=== PATIENT | male | born 1940 | race Caucasian/White ===

== ENCOUNTER 2021-05-10 10:21 | Inpatient (IN) ==
[2021-05-11] MEDS ORDERED: Dextrose Gel 15 GM/37.5 ML TUBE PO PRN ×2 (20:59)
[2021-05-11] MEDS ORDERED: D5% in Water 1,000 ML IVC PRN (20:59)
[2021-05-11] MEDS ORDERED: *HR* Dextrose 50 % in Water (Vial) 50 ML VIAL IVP PRN (20:59)
[2021-05-11] MEDS: Insulin LISPRO 300 UNITS/3 ML VIAL SUBQ SCH (21:22)
[2021-05-11] MEDS: Gabapentin 300 MG CAPSULE PO SCH (21:41)
[2021-05-11] MEDS: Melatonin 3 MG TABLET PO SCH (21:41)
[2021-05-11] MEDS: hydrALAZINE 25 MG TABLET PO SCH (23:28)
[2021-05-12] MEDS: carvediloL 6.25 MG TABLET PO SCH ×2 (05:34→17:13)
[2021-05-12] MEDS: Morphine Sulfate ER (12 HR) 30 MG TABLET.ER PO SCH ×2 (05:34→17:13)
[2021-05-12] MEDS: *HR* Enoxaparin 40 MG/0.4 ML SYRINGE SQ SCH (05:35)
[2021-05-12 06:24] LABS: Basophils % 0.2 %; Eosinophils % 0.4 %; Hematocrit 33.4 % (37.5-50.1); Hemoglobin 10.6 g/dL (12.9-16.9); Immature Granulocytes % 1.8 % (0-4); Lymphocytes # 1.7 K/mcL (0.6-4.6); Lymphocytes % 15.1 %; Mean Corpuscular HGB Conc 31.7 g/dL (31.6-35.5); Mean Corpuscular Hemoglobin 30.5 pg (28.0-33.3); Mean Platelet Volume 10.9 fL (9.4-12.4); Monocytes % 8.8 %; Neutrophils # 8.1 K/mcL (1.6-8.9); Platelet Count 283 K/mcL (140-400); Red Blood Count 3.48 M/mcL (4.19-5.50); Red Cell Distribution Width 15.8 % (11.5-14.5); Segmented Neutrophils % 73.7 %
[2021-05-12 06:41] LABS: BUN/Creatinine Ratio 42 (6-26); Blood Urea Nitrogen 30 mg/dL (8-23); Calcium 8.4 mg/dL (8.6-10.3); Carbon Dioxide 25 mEq/L (23-29); Chloride 105 mEq/L (98-107); Glucose 154 mg/dL (70-105); Osmolality,Calculated 293 (280-300); Potassium 3.7 mEq/L (3.5-5.1); Sodium 137 mEq/L (136-145); eGFR For African Americans > 60 (> 60); eGFR For Non-African Americans > 60 (> 60)
[2021-05-12] MEDS: hydrALAZINE 25 MG TABLET PO SCH ×3 (08:35→21:39)
[2021-05-12] MEDS: lisinopriL 10 MG TABLET PO SCH (08:35)
[2021-05-12] MEDS: Gabapentin 300 MG CAPSULE PO SCH ×3 (08:35→21:39)
[2021-05-12] MEDS: Loratadine 10 MG TABLET PO SCH (08:35)
[2021-05-12] MEDS: Insulin LISPRO 300 UNITS/3 ML VIAL SUBQ SCH ×4 (09:34→21:46)
[2021-05-12] MEDS: MINERAL OIL TP SCH (10:53)
[2021-05-12] MEDS: HYDROPHIL PETROLAT TP SCH (10:53)
[2021-05-12] MEDS: Melatonin 3 MG TABLET PO SCH (21:39)
[2021-05-13] MEDS: *HR* Enoxaparin 40 MG/0.4 ML SYRINGE SQ SCH (06:12)
[2021-05-13] MEDS: carvediloL 6.25 MG TABLET PO SCH ×2 (06:13→17:32)
[2021-05-13] MEDS: Morphine Sulfate ER (12 HR) 30 MG TABLET.ER PO SCH ×2 (06:13→17:33)
[2021-05-13] MEDS: Ondansetron ODT 4 MG TAB.RAPDIS SL PRN (09:14)
[2021-05-13] MEDS: Insulin LISPRO 300 UNITS/3 ML VIAL SUBQ SCH ×4 (09:51→22:21)
[2021-05-13] MEDS: hydrALAZINE 25 MG TABLET PO SCH ×2 (09:51→16:50)
[2021-05-13] MEDS: Loratadine 10 MG TABLET PO SCH (09:51)
[2021-05-13] MEDS: Gabapentin 300 MG CAPSULE PO SCH ×3 (09:52→20:58)
[2021-05-13] MEDS: lisinopriL 10 MG TABLET PO SCH (09:52)
[2021-05-13] MEDS: HYDROPHIL PETROLAT TP SCH (09:53)
[2021-05-13] MEDS: MINERAL OIL TP SCH (09:53)
[2021-05-13] MEDS: Melatonin 3 MG TABLET PO SCH (20:57)
[2021-05-13] MEDS: *HR* OxyCODONE/APAP 5/325 TABLET PO PRN (22:19)
[2021-05-14] MEDS: hydrALAZINE 25 MG TABLET PO SCH ×4 (01:10→21:13)
[2021-05-14] MEDS: *HR* Enoxaparin 40 MG/0.4 ML SYRINGE SQ SCH (06:15)
[2021-05-14] MEDS: carvediloL 6.25 MG TABLET PO SCH ×2 (06:17→16:59)
[2021-05-14] MEDS: Morphine Sulfate ER (12 HR) 30 MG TABLET.ER PO SCH (06:17)
[2021-05-14] MEDS: Insulin LISPRO 300 UNITS/3 ML VIAL SUBQ SCH ×4 (07:27→21:06)
[2021-05-14] MEDS: Gabapentin 300 MG CAPSULE PO SCH ×3 (09:09→21:13)
[2021-05-14] MEDS: MINERAL OIL TP SCH (09:10)
[2021-05-14] MEDS: HYDROPHIL PETROLAT TP SCH (09:10)
[2021-05-14] MEDS: Loratadine 10 MG TABLET PO SCH (09:10)
[2021-05-14] MEDS: lisinopriL 10 MG TABLET PO SCH (09:10)
[2021-05-14 12:06] LABS: Basophils % 0.2 %; Eosinophils % 0.3 %; Hematocrit 29.1 % (37.5-50.1); Hemoglobin 9.2 g/dL (12.9-16.9); Immature Granulocytes % 2.3 % (0-4); Lymphocytes # 1.7 K/mcL (0.6-4.6); Mean Corpuscular HGB Conc 31.6 g/dL (31.6-35.5); Mean Corpuscular Hemoglobin 30.9 pg (28.0-33.3); Mean Corpuscular Volume 97.7 fL (83.0-100.0); Mean Platelet Volume 11.3 fL (9.4-12.4); Monocytes # 1.5 K/mcL (0.0-1.3); Monocytes % 12.6 %; Neutrophils # 8.4 K/mcL (1.6-8.9); Platelet Count 296 K/mcL (140-400); Red Blood Count 2.98 M/mcL (4.19-5.50); Red Cell Distribution Width 15.4 % (11.5-14.5); Segmented Neutrophils % 70.6 %; White Blood Count 11.9 K/mcL (4.3-11.1)
[2021-05-14 13:11] LABS: Potassium 4.1 mEq/L (3.5-5.1)
[2021-05-14] MEDS ORDERED: 0.9 % Sodium Chloride 1,000 ML IVC SCH (14:15)
[2021-05-14] MEDS: Morphine Sulfate ER (12 HR) 15 MG TABLET.ER PO SCH (17:12)
[2021-05-14 17:51] LABS: Estimated Average Glucose 154 mg/dl
[2021-05-14] MEDS: Melatonin 3 MG TABLET PO SCH (21:13)
[2021-05-15] MEDS: *HR* Enoxaparin 40 MG/0.4 ML SYRINGE SQ SCH (04:53)
[2021-05-15] MEDS: carvediloL 6.25 MG TABLET PO SCH ×2 (04:53→16:54)
[2021-05-15] MEDS: Morphine Sulfate ER (12 HR) 15 MG TABLET.ER PO SCH ×2 (04:53→16:54)
[2021-05-15] MEDS: Insulin LISPRO 300 UNITS/3 ML VIAL SUBQ SCH ×4 (07:31→19:52)
[2021-05-15] MEDS: hydrALAZINE 25 MG TABLET PO SCH (09:31)
[2021-05-15] MEDS: lisinopriL 10 MG TABLET PO SCH (09:31)
[2021-05-15] MEDS: Loratadine 10 MG TABLET PO SCH (09:39)
[2021-05-15] MEDS: Gabapentin 300 MG CAPSULE PO SCH ×3 (09:39→20:55)
[2021-05-15] MEDS: HYDROPHIL PETROLAT TP SCH (09:41)
[2021-05-15] MEDS: MINERAL OIL TP SCH (09:41)
[2021-05-15] MEDS: [UNRECOGNIZED DRUG - OTHER] PO SCH (09:42)
[2021-05-15] MEDS: Melatonin 3 MG TABLET PO SCH (20:55)
[2021-05-16] MEDS: *HR* Enoxaparin 40 MG/0.4 ML SYRINGE SQ SCH (05:06)
[2021-05-16] MEDS: Morphine Sulfate ER (12 HR) 15 MG TABLET.ER PO SCH ×2 (05:06→18:03)
[2021-05-16] MEDS: carvediloL 6.25 MG TABLET PO SCH ×2 (05:06→18:03)
[2021-05-16] MEDS: Insulin LISPRO 300 UNITS/3 ML VIAL SUBQ SCH ×4 (07:36→20:15)
[2021-05-16] MEDS: HYDROPHIL PETROLAT TP SCH (09:00)
[2021-05-16] MEDS: MINERAL OIL TP SCH (09:00)
[2021-05-16] MEDS: Gabapentin 300 MG CAPSULE PO SCH ×3 (09:00→20:14)
[2021-05-16] MEDS: [UNRECOGNIZED DRUG - OTHER] PO SCH (09:00)
[2021-05-16] MEDS: Loratadine 10 MG TABLET PO SCH (09:00)
[2021-05-16] MEDS: lisinopriL 5 MG TABLET PO SCH (09:01)
[2021-05-16] MEDS: Ondansetron ODT 4 MG TAB.RAPDIS SL PRN (14:17)
[2021-05-16] MEDS: Melatonin 3 MG TABLET PO SCH (20:13)
[2021-05-17] MEDS: Ondansetron ODT 4 MG TAB.RAPDIS SL PRN (02:07)
[2021-05-17] MEDS: carvediloL 6.25 MG TABLET PO SCH ×2 (05:07→17:15)
[2021-05-17 05:12] LABS: Alanine Aminotransferase 17 Units/L (7-52); Albumin 2.4 g/dL (3.5-5.7); Alkaline Phosphatase 87 Units/L (34-104); Aspartate Amino Transferase 13 Units/L (13-39); BUN/Creatinine Ratio 22 (6-26); Bilirubin,Total 0.8 mg/dL (0.3-1.0); Blood Urea Nitrogen 18 mg/dL (8-23); Calcium 8.3 mg/dL (8.6-10.3); Carbon Dioxide 26 mEq/L (23-29); Chloride 102 mEq/L (98-107); Globulin 2.3 g/dL (2.4-3.5); Glucose 108 mg/dL (70-105); Magnesium 1.8 mg/dL (1.6-2.6); Osmolality,Calculated 280 (280-300); Potassium 4.3 mEq/L (3.5-5.1); Sodium 134 mEq/L (136-145); Total Protein 4.7 g/dL (6.4-8.9); eGFR For African Americans > 60 (> 60); eGFR For Non-African Americans > 60 (> 60)
[2021-05-17] MEDS: Morphine Sulfate ER (12 HR) 15 MG TABLET.ER PO SCH ×2 (05:14→17:15)
[2021-05-17 06:26] LABS: Hematocrit 23.8 % (37.5-50.1); Hemoglobin 7.5 g/dL (12.9-16.9); Mean Corpuscular HGB Conc 31.5 g/dL (31.6-35.5); Mean Corpuscular Hemoglobin 30.4 pg (28.0-33.3); Mean Corpuscular Volume 96.4 fL (83.0-100.0); Mean Platelet Volume 10.5 fL (9.4-12.4); Platelet Count 327 K/mcL (140-400); Red Blood Count 2.47 M/mcL (4.19-5.50); Red Cell Distribution Width 15.3 % (11.5-14.5); White Blood Count 8.9 K/mcL (4.3-11.1)
[2021-05-17] MEDS: *HR* Enoxaparin 40 MG/0.4 ML SYRINGE SQ SCH (07:23)
[2021-05-17] MEDS: Insulin LISPRO 300 UNITS/3 ML VIAL SUBQ SCH ×4 (08:43→20:55)
[2021-05-17] MEDS: Gabapentin 300 MG CAPSULE PO SCH ×3 (09:32→20:52)
[2021-05-17] MEDS: [UNRECOGNIZED DRUG - OTHER] PO SCH (09:32)
[2021-05-17] MEDS: HYDROPHIL PETROLAT TP SCH (09:32)
[2021-05-17] MEDS: MINERAL OIL TP SCH (09:32)
[2021-05-17] MEDS: Loratadine 10 MG TABLET PO SCH (09:32)
[2021-05-17] MEDS: lisinopriL 5 MG TABLET PO SCH (09:33)
[2021-05-17] MEDS: *HR* OxyCODONE/APAP 5/325 TABLET PO PRN (13:15)
[2021-05-17] MEDS: Melatonin 3 MG TABLET PO SCH (20:52)
[2021-05-18] MEDS: carvediloL 6.25 MG TABLET PO SCH ×2 (06:33→16:19)
[2021-05-18] MEDS: Morphine Sulfate ER (12 HR) 15 MG TABLET.ER PO SCH ×2 (06:33→17:13)
[2021-05-18] MEDS: *HR* Enoxaparin 40 MG/0.4 ML SYRINGE SQ SCH (06:33)
[2021-05-18] MEDS: lisinopriL 5 MG TABLET PO SCH (07:32)
[2021-05-18] MEDS: MINERAL OIL TP SCH (08:32)
[2021-05-18] MEDS: HYDROPHIL PETROLAT TP SCH (08:32)
[2021-05-18] MEDS: [UNRECOGNIZED DRUG - OTHER] PO SCH (08:33)
[2021-05-18] MEDS: Gabapentin 300 MG CAPSULE PO SCH ×3 (08:33→20:51)
[2021-05-18] MEDS: Loratadine 10 MG TABLET PO SCH (08:33)
[2021-05-18] MEDS: Insulin LISPRO 300 UNITS/3 ML VIAL SUBQ SCH ×4 (08:34→20:32)
[2021-05-18] MEDS: Melatonin 3 MG TABLET PO SCH (20:51)
[2021-05-18] MEDS: *HR* OxyCODONE/APAP 5/325 TABLET PO PRN (20:52)
[2021-05-19] MEDS: Morphine Sulfate ER (12 HR) 15 MG TABLET.ER PO SCH ×2 (05:51→16:55)
[2021-05-19] MEDS: carvediloL 6.25 MG TABLET PO SCH ×2 (05:52→16:55)
[2021-05-19] MEDS: *HR* Enoxaparin 40 MG/0.4 ML SYRINGE SQ SCH (05:53)
[2021-05-19] MEDS: Insulin LISPRO 300 UNITS/3 ML VIAL SUBQ SCH ×4 (07:48→22:05)
[2021-05-19] MEDS: MINERAL OIL TP SCH (08:43)
[2021-05-19] MEDS: HYDROPHIL PETROLAT TP SCH (08:43)
[2021-05-19] MEDS: Loratadine 10 MG TABLET PO SCH (08:44)
[2021-05-19] MEDS: Gabapentin 300 MG CAPSULE PO SCH ×3 (08:44→20:20)
[2021-05-19] MEDS: lisinopriL 5 MG TABLET PO SCH (08:44)
[2021-05-19] MEDS: [UNRECOGNIZED DRUG - OTHER] PO SCH (08:44)
[2021-05-19] MEDS: *HR* OxyCODONE/APAP 5/325 TABLET PO PRN ×2 (11:35→20:21)
[2021-05-19] MEDS: Melatonin 3 MG TABLET PO SCH (20:20)
[2021-05-20] MEDS: Morphine Sulfate ER (12 HR) 15 MG TABLET.ER PO SCH ×3 (05:55→17:58)
[2021-05-20] MEDS: carvediloL 6.25 MG TABLET PO SCH ×3 (05:55→17:58)
[2021-05-20] MEDS: *HR* Enoxaparin 40 MG/0.4 ML SYRINGE SQ SCH (05:56)
[2021-05-20 06:13] LABS: Hematocrit 23.5 % (37.5-50.1); Hemoglobin 7.3 g/dL (12.9-16.9); Mean Corpuscular HGB Conc 31.1 g/dL (31.6-35.5); Mean Corpuscular Hemoglobin 29.9 pg (28.0-33.3); Mean Corpuscular Volume 96.3 fL (83.0-100.0); Mean Platelet Volume 10.9 fL (9.4-12.4); Platelet Count 327 K/mcL (140-400); Red Blood Count 2.44 M/mcL (4.19-5.50); Red Cell Distribution Width 15.8 % (11.5-14.5); White Blood Count 6.9 K/mcL (4.3-11.1)
[2021-05-20 06:37] LABS: BUN/Creatinine Ratio 31 (6-26); Blood Urea Nitrogen 24 mg/dL (8-23); Calcium 9.1 mg/dL (8.6-10.3); Carbon Dioxide 33 mEq/L (23-29); Chloride 97 mEq/L (98-107); Glucose 94 mg/dL (70-105); Magnesium 1.8 mg/dL (1.6-2.6); Osmolality,Calculated 284 (280-300); Potassium 3.8 mEq/L (3.5-5.1); Sodium 135 mEq/L (136-145); eGFR For African Americans > 60 (> 60); eGFR For Non-African Americans > 60 (> 60)
[2021-05-20] MEDS: Insulin LISPRO 300 UNITS/3 ML VIAL SUBQ SCH ×4 (07:48→19:57)
[2021-05-20] MEDS: Loratadine 10 MG TABLET PO SCH (07:49)
[2021-05-20] MEDS: lisinopriL 5 MG TABLET PO SCH (07:49)
[2021-05-20] MEDS: Gabapentin 300 MG CAPSULE PO SCH ×3 (07:49→21:06)
[2021-05-20] MEDS: HYDROPHIL PETROLAT TP SCH (10:40)
[2021-05-20] MEDS: MINERAL OIL TP SCH (10:40)
[2021-05-20] MEDS: Ondansetron ODT 4 MG TAB.RAPDIS SL PRN (10:43)
[2021-05-20] MEDS: [UNRECOGNIZED DRUG - OTHER] PO SCH (11:52)
[2021-05-20] MEDS: *HR* OxyCODONE/APAP 5/325 TABLET PO PRN (14:41)
[2021-05-20] MEDS: levoFLOXacin 750 MG TABLET PO SCH (14:44)
[2021-05-20 17:39] LABS: Bilirubin,Urine Negative (Negative); Blood,Urine Trace-intact (Negative); Clarity,Urine Clear (Clear); Color,Urine Yellow (Yellow); Glucose,Urine (UA) Normal (Normal); Ketones,Urine Negative (Negative); Leukocyte Esterase,Urine Negative (Negative); Nitrite,Urine Negative (Negative); PH,Urine 6.5 pH Units (5.0-8.0); Protein,Urine Negative (Neg-Trace); Urobilinogen,Urine Normal (Normal)
[2021-05-20] MEDS: Melatonin 3 MG TABLET PO SCH (21:06)
[2021-05-21 05:13] LABS: BUN/Creatinine Ratio 26 (6-26); Blood Urea Nitrogen 23 mg/dL (8-23); Calcium 9.1 mg/dL (8.6-10.3); Carbon Dioxide 33 mEq/L (23-29); Chloride 99 mEq/L (98-107); Glucose 112 mg/dL (70-105); Osmolality,Calculated 290 (280-300); Potassium 4.1 mEq/L (3.5-5.1); Sodium 138 mEq/L (136-145); eGFR For African Americans > 60 (> 60); eGFR For Non-African Americans > 60 (> 60)
[2021-05-21 05:16] LABS: Hematocrit 22.8 % (37.5-50.1); Mean Corpuscular HGB Conc 30.7 g/dL (31.6-35.5); Mean Corpuscular Volume 97.9 fL (83.0-100.0); Mean Platelet Volume 10.9 fL (9.4-12.4); Platelet Count 303 K/mcL (140-400); Red Blood Count 2.33 M/mcL (4.19-5.50); Red Cell Distribution Width 16.2 % (11.5-14.5); White Blood Count 7.5 K/mcL (4.3-11.1)
[2021-05-21] MEDS: *HR* Enoxaparin 40 MG/0.4 ML SYRINGE SQ SCH (06:34)
[2021-05-21] MEDS: Morphine Sulfate ER (12 HR) 15 MG TABLET.ER PO SCH ×2 (06:35→17:35)
[2021-05-21] MEDS: carvediloL 6.25 MG TABLET PO SCH (06:35)
[2021-05-21] MEDS: MINERAL OIL TP SCH (08:04)
[2021-05-21] MEDS: levoFLOXacin 750 MG TABLET PO SCH (08:04)
[2021-05-21] MEDS: Gabapentin 300 MG CAPSULE PO SCH ×3 (08:04→21:57)
[2021-05-21] MEDS: Loratadine 10 MG TABLET PO SCH (08:04)
[2021-05-21] MEDS: lisinopriL 5 MG TABLET PO SCH (08:04)
[2021-05-21] MEDS: HYDROPHIL PETROLAT TP SCH (08:04)
[2021-05-21] MEDS: Insulin LISPRO 300 UNITS/3 ML VIAL SUBQ SCH ×4 (08:05→21:57)
[2021-05-21] MEDS: [UNRECOGNIZED DRUG - OTHER] PO SCH (08:10)
[2021-05-21] MEDS ORDERED: 0.9 % Sodium Chloride 250 ML IVC SCH (10:15)
[2021-05-21] MEDS ORDERED: Furosemide 20 MG/2 ML VIAL IVP ONE (15:19)
[2021-05-21] MEDS: Ipratropium/Albuterol Neb 3 ML IH SCH ×2 (16:38→21:23)
[2021-05-21] MEDS: predniSONE 10 MG TABLET PO SCH (17:36)
[2021-05-21 18:00] LABS: % Iron Saturation 17 % (20-55); Iron 41 mcg/dL (65-175); Transferrin 169 mg/dL (203-362)
[2021-05-21] MEDS ORDERED: carvediloL 25 MG TABLET PO ONE (18:00)
[2021-05-21] MEDS: Melatonin 3 MG TABLET PO SCH (21:58)
[2021-05-21] MEDS: *HR* OxyCODONE/APAP 5/325 TABLET PO PRN (21:58)
[2021-05-22] MEDS: Ipratropium/Albuterol Neb 3 ML IH SCH ×4 (04:06→21:21)
[2021-05-22 05:30] LABS: Alanine Aminotransferase 13 Units/L (7-52); Albumin 2.8 g/dL (3.5-5.7); Albumin/Globulin Ratio 0.8 (1.1-2.2); Alkaline Phosphatase 83 Units/L (34-104); Aspartate Amino Transferase 12 Units/L (13-39); BUN/Creatinine Ratio 24 (6-26); Bilirubin,Total 0.9 mg/dL (0.3-1.0); Blood Urea Nitrogen 22 mg/dL (8-23); Calcium 9.4 mg/dL (8.6-10.3); Carbon Dioxide 33 mEq/L (23-29); Chloride 98 mEq/L (98-107); Globulin 3.3 g/dL (2.4-3.5); Glucose 175 mg/dL (70-105); Magnesium 1.9 mg/dL (1.6-2.6); Osmolality,Calculated 292 (280-300); Potassium 4.6 mEq/L (3.5-5.1); Sodium 137 mEq/L (136-145); Total Protein 6.1 g/dL (6.4-8.9); eGFR For African Americans > 60 (> 60); eGFR For Non-African Americans > 60 (> 60)
[2021-05-22 05:38] LABS: Hematocrit 28.3 % (37.5-50.1); Hemoglobin 8.9 g/dL (12.9-16.9); Mean Corpuscular HGB Conc 31.4 g/dL (31.6-35.5); Mean Corpuscular Hemoglobin 29.6 pg (28.0-33.3); Platelet Count 324 K/mcL (140-400); Red Blood Count 3.01 M/mcL (4.19-5.50); Red Cell Distribution Width 18.1 % (11.5-14.5); White Blood Count 9.5 K/mcL (4.3-11.1)
[2021-05-22] MEDS: Morphine Sulfate ER (12 HR) 15 MG TABLET.ER PO SCH ×2 (06:10→16:34)
[2021-05-22] MEDS: *HR* Enoxaparin 40 MG/0.4 ML SYRINGE SQ SCH (06:10)
[2021-05-22 07:58] LABS: % Iron Saturation 16 % (20-55); Iron 42 mcg/dL (65-175); Transferrin 187 mg/dL (203-362)
[2021-05-22] MEDS ORDERED: carvediloL 6.25 MG TABLET PO SCH ×2 (08:00)
[2021-05-22] MEDS: Insulin LISPRO 300 UNITS/3 ML VIAL SUBQ SCH ×4 (09:01→20:50)
[2021-05-22] MEDS: lisinopriL 5 MG TABLET PO SCH (09:02)
[2021-05-22] MEDS: Loratadine 10 MG TABLET PO SCH (09:02)
[2021-05-22] MEDS: levoFLOXacin 750 MG TABLET PO SCH (09:02)
[2021-05-22] MEDS: *HR* OxyCODONE/APAP 5/325 TABLET PO PRN ×2 (09:02→20:49)
[2021-05-22] MEDS: MINERAL OIL TP SCH (09:03)
[2021-05-22] MEDS: HYDROPHIL PETROLAT TP SCH (09:03)
[2021-05-22] MEDS: Gabapentin 300 MG CAPSULE PO SCH ×3 (09:03→20:49)
[2021-05-22] MEDS: predniSONE 10 MG TABLET PO SCH ×2 (09:03→16:34)
[2021-05-22] MEDS ORDERED: carvediloL 25 MG TABLET PO ONE (09:15)
[2021-05-22] MEDS: [UNRECOGNIZED DRUG - OTHER] PO SCH (10:50)
[2021-05-22] MEDS ORDERED: Bisacodyl 10 MG RECTAL SUPPOSITORY RC PRN (15:19)
[2021-05-22] MEDS ORDERED: MOM Conc 10 ML UD.LIQ PO PRN (15:19)
[2021-05-22] MEDS ORDERED: Lactulose Oral Soln 20 GM/30 ML UDC PO PRN (15:21)
[2021-05-22] MEDS: carvediloL 6.25 MG TABLET PO SCH (16:34)
[2021-05-22] MEDS: Melatonin 3 MG TABLET PO SCH (20:49)
[2021-05-22] MEDS: Artificial Tears SOLN 15 ML BOTTLE LEFT EYE PRN (20:56)
[2021-05-23] MEDS: Ipratropium/Albuterol Neb 3 ML IH SCH ×4 (03:21→20:55)
[2021-05-23] MEDS: Morphine Sulfate ER (12 HR) 15 MG TABLET.ER PO SCH ×2 (04:58→17:37)
[2021-05-23] MEDS: *HR* Enoxaparin 40 MG/0.4 ML SYRINGE SQ SCH (04:58)
[2021-05-23] MEDS: Insulin LISPRO 300 UNITS/3 ML VIAL SUBQ SCH ×4 (08:56→21:09)
[2021-05-23] MEDS: levoFLOXacin 750 MG TABLET PO SCH (08:59)
[2021-05-23] MEDS: lisinopriL 5 MG TABLET PO SCH (08:59)
[2021-05-23] MEDS: Loratadine 10 MG TABLET PO SCH (08:59)
[2021-05-23] MEDS: polyethylene glycoL 3350 17 GM POWD.PACK PO SCH (08:59)
[2021-05-23] MEDS: MINERAL OIL TP SCH (08:59)
[2021-05-23] MEDS: [UNRECOGNIZED DRUG - OTHER] PO SCH (08:59)
[2021-05-23] MEDS: carvediloL 6.25 MG TABLET PO SCH ×2 (08:59→17:00)
[2021-05-23] MEDS: predniSONE 10 MG TABLET PO SCH ×2 (08:59→17:37)
[2021-05-23] MEDS: HYDROPHIL PETROLAT TP SCH (08:59)
[2021-05-23] MEDS: Gabapentin 300 MG CAPSULE PO SCH ×3 (08:59→21:08)
[2021-05-23] MEDS: Artificial Tears SOLN 15 ML BOTTLE LEFT EYE PRN (09:07)
[2021-05-23] MEDS: *HR* OxyCODONE/APAP 5/325 TABLET PO PRN ×2 (11:32→21:07)
[2021-05-23] MEDS: Melatonin 3 MG TABLET PO SCH (21:08)
[2021-05-24] MEDS: Ipratropium/Albuterol Neb 3 ML IH SCH ×4 (03:22→19:33)
[2021-05-24 04:50] LABS: Hematocrit 25.6 % (37.5-50.1); Hemoglobin 7.8 g/dL (12.9-16.9); Mean Corpuscular HGB Conc 30.5 g/dL (31.6-35.5); Mean Corpuscular Hemoglobin 28.9 pg (28.0-33.3); Mean Corpuscular Volume 94.8 fL (83.0-100.0); Mean Platelet Volume 10.8 fL (9.4-12.4); Platelet Count 355 K/mcL (140-400); Red Cell Distribution Width 17.7 % (11.5-14.5); White Blood Count 11.2 K/mcL (4.3-11.1)
[2021-05-24 05:03] LABS: BUN/Creatinine Ratio 35 (6-26); Blood Urea Nitrogen 31 mg/dL (8-23); Calcium 9.3 mg/dL (8.6-10.3); Carbon Dioxide 31 mEq/L (23-29); Chloride 100 mEq/L (98-107); Glucose 163 mg/dL (70-105); Magnesium 2.1 mg/dL (1.6-2.6); Osmolality,Calculated 292 (280-300); Potassium 4.3 mEq/L (3.5-5.1); Sodium 136 mEq/L (136-145); eGFR For African Americans > 60 (> 60); eGFR For Non-African Americans > 60 (> 60)
[2021-05-24] MEDS: *HR* Enoxaparin 40 MG/0.4 ML SYRINGE SQ SCH (05:54)
[2021-05-24] MEDS: Morphine Sulfate ER (12 HR) 15 MG TABLET.ER PO SCH ×2 (05:55→17:20)
[2021-05-24] MEDS: polyethylene glycoL 3350 17 GM POWD.PACK PO SCH (08:38)
[2021-05-24] MEDS: HYDROPHIL PETROLAT TP SCH (08:38)
[2021-05-24] MEDS: MINERAL OIL TP SCH (08:38)
[2021-05-24] MEDS: [UNRECOGNIZED DRUG - OTHER] PO SCH (08:39)
[2021-05-24] MEDS: Aspirin Enteric Coated 81 MG Tablet PO SCH (08:39)
[2021-05-24] MEDS: predniSONE 10 MG TABLET PO SCH ×2 (08:39→17:21)
[2021-05-24] MEDS: Gabapentin 300 MG CAPSULE PO SCH ×3 (08:40→21:00)
[2021-05-24] MEDS: Loratadine 10 MG TABLET PO SCH (08:40)
[2021-05-24] MEDS: carvediloL 6.25 MG TABLET PO SCH ×2 (08:40→17:20)
[2021-05-24] MEDS: levoFLOXacin 750 MG TABLET PO SCH (08:40)
[2021-05-24] MEDS: lisinopriL 5 MG TABLET PO SCH (08:40)
[2021-05-24] MEDS: Insulin LISPRO 300 UNITS/3 ML VIAL SUBQ SCH ×4 (08:41→21:02)
[2021-05-24] MEDS: *HR* OxyCODONE/APAP 5/325 TABLET PO PRN ×2 (09:05→21:01)
[2021-05-24] MEDS: Melatonin 3 MG TABLET PO SCH (21:02)
[2021-05-25] MEDS: Ipratropium/Albuterol Neb 3 ML IH SCH ×4 (04:29→21:25)
[2021-05-25] MEDS: Morphine Sulfate ER (12 HR) 15 MG TABLET.ER PO SCH ×2 (05:28→16:06)
[2021-05-25 06:12] LABS: Basophils % 0.3 %; Eosinophils % 0.2 %; Hematocrit 24.9 % (37.5-50.1); Hemoglobin 7.6 g/dL (12.9-16.9); Immature Granulocytes % 5.4 % (0-4); Lymphocytes # 1.9 K/mcL (0.6-4.6); Lymphocytes % 16.2 %; Mean Corpuscular HGB Conc 30.5 g/dL (31.6-35.5); Mean Corpuscular Hemoglobin 29.1 pg (28.0-33.3); Mean Corpuscular Volume 95.4 fL (83.0-100.0); Mean Platelet Volume 10.7 fL (9.4-12.4); Monocytes # 1.2 K/mcL (0.0-1.3); Neutrophils # 8.1 K/mcL (1.6-8.9); Nucleated Red Blood Cells 0.4 /100 WBC (0); Platelet Count 358 K/mcL (140-400); Red Blood Count 2.61 M/mcL (4.19-5.50); Red Cell Distribution Width 17.9 % (11.5-14.5); Segmented Neutrophils % 67.9 %; White Blood Count 11.9 K/mcL (4.3-11.1)
[2021-05-25 08:00] LABS: Anisocytosis 1+ (Not Present); Platelet Estimate Normal (Normal)
[2021-05-25] MEDS: Insulin LISPRO 300 UNITS/3 ML VIAL SUBQ SCH ×4 (08:39→21:35)
[2021-05-25] MEDS: polyethylene glycoL 3350 17 GM POWD.PACK PO SCH (09:05)
[2021-05-25] MEDS: lisinopriL 5 MG TABLET PO SCH (09:05)
[2021-05-25] MEDS: predniSONE 10 MG TABLET PO SCH ×2 (09:05→16:06)
[2021-05-25] MEDS: carvediloL 6.25 MG TABLET PO SCH ×2 (09:05→16:06)
[2021-05-25] MEDS: Loratadine 10 MG TABLET PO SCH (09:05)
[2021-05-25] MEDS: levoFLOXacin 750 MG TABLET PO SCH (09:05)
[2021-05-25] MEDS: Aspirin Enteric Coated 81 MG Tablet PO SCH (09:05)
[2021-05-25] MEDS: Gabapentin 300 MG CAPSULE PO SCH ×3 (09:05→21:34)
[2021-05-25] MEDS: MINERAL OIL TP SCH (09:06)
[2021-05-25] MEDS: [UNRECOGNIZED DRUG - OTHER] PO SCH (09:06)
[2021-05-25] MEDS: HYDROPHIL PETROLAT TP SCH (09:06)
[2021-05-25] MEDS: *HR* Enoxaparin 40 MG/0.4 ML SYRINGE SQ SCH (09:09)
[2021-05-25] MEDS: *HR* OxyCODONE/APAP 5/325 TABLET PO PRN ×2 (11:37→21:35)
[2021-05-25] MEDS: Melatonin 3 MG TABLET PO SCH (21:35)
[2021-05-26] MEDS: Ipratropium/Albuterol Neb 3 ML IH SCH ×4 (03:56→21:06)
[2021-05-26] MEDS: *HR* Enoxaparin 40 MG/0.4 ML SYRINGE SQ SCH (05:57)
[2021-05-26] MEDS: Morphine Sulfate ER (12 HR) 15 MG TABLET.ER PO SCH ×2 (05:57→16:05)
[2021-05-26] MEDS: polyethylene glycoL 3350 17 GM POWD.PACK PO SCH (07:45)
[2021-05-26] MEDS: Loratadine 10 MG TABLET PO SCH (07:46)
[2021-05-26] MEDS: lisinopriL 5 MG TABLET PO SCH (07:46)
[2021-05-26] MEDS: predniSONE 10 MG TABLET PO SCH ×2 (07:46→16:05)
[2021-05-26] MEDS: carvediloL 6.25 MG TABLET PO SCH ×2 (07:46→16:05)
[2021-05-26] MEDS: Aspirin Enteric Coated 81 MG Tablet PO SCH (07:46)
[2021-05-26] MEDS: Gabapentin 300 MG CAPSULE PO SCH ×3 (07:46→21:57)
[2021-05-26] MEDS: levoFLOXacin 750 MG TABLET PO SCH (07:53)
[2021-05-26] MEDS: [UNRECOGNIZED DRUG - OTHER] PO SCH (07:55)
[2021-05-26] MEDS: MINERAL OIL TP SCH (07:55)
[2021-05-26] MEDS: HYDROPHIL PETROLAT TP SCH (07:55)
[2021-05-26] MEDS: Insulin LISPRO 300 UNITS/3 ML VIAL SUBQ SCH ×4 (07:56→21:55)
[2021-05-26] MEDS: *HR* OxyCODONE/APAP 5/325 TABLET PO PRN ×2 (08:14→16:07)
[2021-05-26] MEDS: Ondansetron ODT 4 MG TAB.RAPDIS SL PRN (16:05)
[2021-05-26] MEDS: Melatonin 3 MG TABLET PO SCH (21:57)
[2021-05-27] MEDS: Ipratropium/Albuterol Neb 3 ML IH SCH ×4 (03:48→21:25)
[2021-05-27] MEDS: Morphine Sulfate ER (12 HR) 15 MG TABLET.ER PO SCH ×2 (06:45→17:36)
[2021-05-27] MEDS: *HR* Enoxaparin 40 MG/0.4 ML SYRINGE SQ SCH (06:45)
[2021-05-27] MEDS: levoFLOXacin 750 MG TABLET PO SCH (08:01)
[2021-05-27] MEDS: *HR* OxyCODONE/APAP 5/325 TABLET PO PRN (08:01)
[2021-05-27] MEDS: lisinopriL 5 MG TABLET PO SCH (08:01)
[2021-05-27] MEDS: Gabapentin 300 MG CAPSULE PO SCH ×3 (08:01→21:29)
[2021-05-27] MEDS: Aspirin Enteric Coated 81 MG Tablet PO SCH (08:01)
[2021-05-27] MEDS: Loratadine 10 MG TABLET PO SCH (08:01)
[2021-05-27] MEDS: predniSONE 10 MG TABLET PO SCH ×2 (08:01→17:36)
[2021-05-27] MEDS: carvediloL 6.25 MG TABLET PO SCH ×2 (08:01→17:36)
[2021-05-27] MEDS: Insulin LISPRO 300 UNITS/3 ML VIAL SUBQ SCH ×4 (08:02→21:28)
[2021-05-27] MEDS: HYDROPHIL PETROLAT TP SCH (08:02)
[2021-05-27] MEDS: MINERAL OIL TP SCH (08:02)
[2021-05-27] MEDS: polyethylene glycoL 3350 17 GM POWD.PACK PO SCH ×2 (08:02→08:05)
[2021-05-27] MEDS: [UNRECOGNIZED DRUG - OTHER] PO SCH (08:04)
[2021-05-27] MEDS ORDERED: 0.9 % Sodium Chloride 500 ML IVC ONE (14:32)
[2021-05-27] MEDS ORDERED: 0.9 % Sodium Chloride 1,000 ML IVC SCH (14:45)
[2021-05-27] MEDS: Melatonin 3 MG TABLET PO SCH (21:29)
[2021-05-28] MEDS: Ipratropium/Albuterol Neb 3 ML IH SCH ×4 (03:56→22:02)
[2021-05-28 04:50] LABS: Hematocrit 26.7 % (37.5-50.1); Hemoglobin 7.9 g/dL (12.9-16.9); Mean Corpuscular HGB Conc 29.6 g/dL (31.6-35.5); Mean Corpuscular Hemoglobin 28.7 pg (28.0-33.3); Mean Corpuscular Volume 97.1 fL (83.0-100.0); Mean Platelet Volume 10.5 fL (9.4-12.4); Platelet Count 418 K/mcL (140-400); Red Blood Count 2.75 M/mcL (4.19-5.50); Red Cell Distribution Width 18.7 % (11.5-14.5); White Blood Count 13.9 K/mcL (4.3-11.1)
[2021-05-28 05:04] LABS: BUN/Creatinine Ratio 49 (6-26); Blood Urea Nitrogen 35 mg/dL (8-23); Calcium 8.3 mg/dL (8.6-10.3); Carbon Dioxide 30 mEq/L (23-29); Chloride 105 mEq/L (98-107); Glucose 163 mg/dL (70-105); Osmolality,Calculated 300 (280-300); Potassium 4.4 mEq/L (3.5-5.1); Sodium 139 mEq/L (136-145); eGFR For African Americans > 60 (> 60); eGFR For Non-African Americans > 60 (> 60)
[2021-05-28] MEDS: *HR* Enoxaparin 40 MG/0.4 ML SYRINGE SQ SCH (06:17)
[2021-05-28] MEDS: Morphine Sulfate ER (12 HR) 15 MG TABLET.ER PO SCH ×2 (06:17→16:11)
[2021-05-28] MEDS: Loratadine 10 MG TABLET PO SCH (07:45)
[2021-05-28] MEDS: Ondansetron ODT 4 MG TAB.RAPDIS SL PRN (07:45)
[2021-05-28] MEDS: Gabapentin 300 MG CAPSULE PO SCH ×3 (07:45→20:05)
[2021-05-28] MEDS: Aspirin Enteric Coated 81 MG Tablet PO SCH (07:45)
[2021-05-28] MEDS: predniSONE 10 MG TABLET PO SCH ×2 (07:45→16:11)
[2021-05-28] MEDS: carvediloL 6.25 MG TABLET PO SCH ×2 (07:45→16:11)
[2021-05-28] MEDS: MINERAL OIL TP SCH (07:46)
[2021-05-28] MEDS: [UNRECOGNIZED DRUG - OTHER] PO SCH (07:46)
[2021-05-28] MEDS: HYDROPHIL PETROLAT TP SCH (07:46)
[2021-05-28] MEDS: Insulin LISPRO 300 UNITS/3 ML VIAL SUBQ SCH ×4 (07:46→20:05)
[2021-05-28] MEDS: polyethylene glycoL 3350 17 GM POWD.PACK PO SCH (07:48)
[2021-05-28] MEDS: *HR* OxyCODONE/APAP 5/325 TABLET PO PRN ×2 (07:48→16:15)
[2021-05-28] MEDS: lisinopriL 5 MG TABLET PO SCH (07:49)
[2021-05-28] MEDS: Melatonin 3 MG TABLET PO SCH (20:05)
[2021-05-29] MEDS: Ipratropium/Albuterol Neb 3 ML IH SCH ×4 (02:46→21:14)
[2021-05-29] MEDS: *HR* Enoxaparin 40 MG/0.4 ML SYRINGE SQ SCH (05:36)
[2021-05-29] MEDS: Morphine Sulfate ER (12 HR) 15 MG TABLET.ER PO SCH ×2 (05:36→17:30)
[2021-05-29] MEDS: *HR* OxyCODONE/APAP 5/325 TABLET PO PRN (06:50)
[2021-05-29] MEDS: Aspirin Enteric Coated 81 MG Tablet PO SCH (09:15)
[2021-05-29] MEDS: lisinopriL 5 MG TABLET PO SCH (09:16)
[2021-05-29] MEDS: predniSONE 10 MG TABLET PO SCH ×2 (09:16→17:30)
[2021-05-29] MEDS: Insulin LISPRO 300 UNITS/3 ML VIAL SUBQ SCH ×4 (09:16→22:27)
[2021-05-29] MEDS: Gabapentin 300 MG CAPSULE PO SCH ×3 (09:16→22:27)
[2021-05-29] MEDS: carvediloL 6.25 MG TABLET PO SCH ×2 (09:16→17:37)
[2021-05-29] MEDS: Loratadine 10 MG TABLET PO SCH (09:16)
[2021-05-29] MEDS: MINERAL OIL TP SCH (09:21)
[2021-05-29] MEDS: polyethylene glycoL 3350 17 GM POWD.PACK PO SCH (09:21)
[2021-05-29] MEDS: [UNRECOGNIZED DRUG - OTHER] PO SCH (09:21)
[2021-05-29] MEDS: HYDROPHIL PETROLAT TP SCH (09:21)
[2021-05-29 18:20] LABS: Bilirubin,Urine Negative (Negative); Blood,Urine Negative (Negative); Clarity,Urine Slightly Cloudy (Clear); Glucose,Urine (UA) Normal (Normal); Ketones,Urine Negative (Negative); Leukocyte Esterase,Urine Negative (Negative); Nitrite,Urine Negative (Negative); Protein,Urine Negative (Neg-Trace); Specific Gravity,Urine 1.015 (1.010-1.025); Urobilinogen,Urine Normal (Normal)
[2021-05-29 18:36] LABS: Color,Urine Yellow (Yellow)
[2021-05-29] MEDS: Melatonin 3 MG TABLET PO SCH (22:27)
[2021-05-30] MEDS: Ipratropium/Albuterol Neb 3 ML IH SCH ×4 (03:56→20:42)
[2021-05-30 04:38] LABS: Hematocrit 29.9 % (37.5-50.1); Mean Corpuscular HGB Conc 30.1 g/dL (31.6-35.5); Mean Corpuscular Hemoglobin 29.4 pg (28.0-33.3); Mean Corpuscular Volume 97.7 fL (83.0-100.0); Mean Platelet Volume 10.2 fL (9.4-12.4); Platelet Count 420 K/mcL (140-400); Red Blood Count 3.06 M/mcL (4.19-5.50); Red Cell Distribution Width 19.6 % (11.5-14.5)
[2021-05-30 04:55] LABS: Alanine Aminotransferase 19 Units/L (7-52); Albumin 3.3 g/dL (3.5-5.7); Albumin/Globulin Ratio 1.2 (1.1-2.2); Alkaline Phosphatase 67 Units/L (34-104); Aspartate Amino Transferase 15 Units/L (13-39); BUN/Creatinine Ratio 57 (6-26); Bilirubin,Total 0.8 mg/dL (0.3-1.0); Blood Urea Nitrogen 37 mg/dL (8-23); Calcium 8.8 mg/dL (8.6-10.3); Carbon Dioxide 33 mEq/L (23-29); Chloride 103 mEq/L (98-107); Globulin 2.7 g/dL (2.4-3.5); Glucose 122 mg/dL (70-105); Magnesium 2.2 mg/dL (1.6-2.6); Osmolality,Calculated 298 (280-300); Potassium 4.8 mEq/L (3.5-5.1); Sodium 139 mEq/L (136-145); eGFR For African Americans > 60 (> 60); eGFR For Non-African Americans > 60 (> 60)
[2021-05-30 05:26] LABS: Thyroid Stimulating Hormone 1.148 mcIU/mL (0.340-5.600)
[2021-05-30] MEDS: Morphine Sulfate ER (12 HR) 15 MG TABLET.ER PO SCH ×2 (05:32→16:28)
[2021-05-30] MEDS: *HR* Enoxaparin 40 MG/0.4 ML SYRINGE SQ SCH (05:32)
[2021-05-30 08:10] LABS: C-Reactive Protein < 5 mg/L (Less than 10)
[2021-05-30] MEDS: Insulin LISPRO 300 UNITS/3 ML VIAL SUBQ SCH ×4 (08:25→20:15)
[2021-05-30] MEDS: Loratadine 10 MG TABLET PO SCH (08:26)
[2021-05-30] MEDS: Gabapentin 300 MG CAPSULE PO SCH ×3 (08:26→20:15)
[2021-05-30] MEDS: lisinopriL 5 MG TABLET PO SCH (08:26)
[2021-05-30] MEDS: carvediloL 6.25 MG TABLET PO SCH ×2 (08:26→17:18)
[2021-05-30] MEDS: Aspirin Enteric Coated 81 MG Tablet PO SCH (08:26)
[2021-05-30] MEDS: predniSONE 10 MG TABLET PO SCH ×2 (08:27→16:28)
[2021-05-30] MEDS: [UNRECOGNIZED DRUG - OTHER] PO SCH (08:28)
[2021-05-30] MEDS: HYDROPHIL PETROLAT TP SCH (08:29)
[2021-05-30] MEDS: polyethylene glycoL 3350 17 GM POWD.PACK PO SCH (08:29)
[2021-05-30] MEDS: MINERAL OIL TP SCH (08:29)
[2021-05-30] MEDS ORDERED: Perflutren Lipid Microsphere 1.3 ML in 0.9 % Sodium Chloride 8.7 ML IVP PRN (13:11)
[2021-05-30] MEDS: Melatonin 3 MG TABLET PO SCH (20:14)
[2021-05-31] MEDS: *HR* Enoxaparin 40 MG/0.4 ML SYRINGE SQ SCH (05:33)
[2021-05-31] MEDS: Morphine Sulfate ER (12 HR) 15 MG TABLET.ER PO SCH ×2 (05:36→17:11)
[2021-05-31] MEDS: Insulin LISPRO 300 UNITS/3 ML VIAL SUBQ SCH ×4 (09:05→20:16)
[2021-05-31] MEDS: polyethylene glycoL 3350 17 GM POWD.PACK PO SCH (09:11)
[2021-05-31] MEDS: Gabapentin 300 MG CAPSULE PO SCH ×3 (09:11→20:16)
[2021-05-31] MEDS: predniSONE 10 MG TABLET PO SCH ×2 (09:12→17:11)
[2021-05-31] MEDS: Loratadine 10 MG TABLET PO SCH (09:12)
[2021-05-31] MEDS: Aspirin Enteric Coated 81 MG Tablet PO SCH (09:12)
[2021-05-31] MEDS: [UNRECOGNIZED DRUG - OTHER] PO SCH (09:12)
[2021-05-31] MEDS: MINERAL OIL TP SCH (09:12)
[2021-05-31] MEDS: HYDROPHIL PETROLAT TP SCH (09:12)
[2021-05-31] MEDS: Ipratropium/Albuterol Neb 3 ML IH SCH ×3 (09:17→20:33)
[2021-05-31] MEDS: carvediloL 6.25 MG TABLET PO SCH ×2 (09:18→17:11)
[2021-05-31] MEDS: *HR* OxyCODONE/APAP 5/325 TABLET PO PRN (12:46)
[2021-05-31] MEDS: lisinopriL 5 MG TABLET PO SCH (20:14)
[2021-05-31] MEDS: Melatonin 3 MG TABLET PO SCH (20:17)
[2021-06-01] MEDS: Morphine Sulfate ER (12 HR) 15 MG TABLET.ER PO SCH ×2 (05:18→16:55)
[2021-06-01] MEDS: *HR* Enoxaparin 40 MG/0.4 ML SYRINGE SQ SCH (05:18)
[2021-06-01] MEDS: Insulin LISPRO 300 UNITS/3 ML VIAL SUBQ SCH ×4 (08:49→20:46)
[2021-06-01] MEDS: polyethylene glycoL 3350 17 GM POWD.PACK PO SCH (08:50)
[2021-06-01] MEDS: Aspirin Enteric Coated 81 MG Tablet PO SCH (08:50)
[2021-06-01] MEDS: Loratadine 10 MG TABLET PO SCH (08:50)
[2021-06-01] MEDS: predniSONE 10 MG TABLET PO SCH ×2 (08:50→16:53)
[2021-06-01] MEDS: Gabapentin 300 MG CAPSULE PO SCH ×3 (08:51→20:45)
[2021-06-01] MEDS: carvediloL 6.25 MG TABLET PO SCH ×2 (08:51→16:55)
[2021-06-01] MEDS: [UNRECOGNIZED DRUG - OTHER] PO SCH (08:52)
[2021-06-01] MEDS: MINERAL OIL TP SCH (08:52)
[2021-06-01] MEDS: lisinopriL 5 MG TABLET PO SCH ×2 (08:52→20:44)
[2021-06-01] MEDS: HYDROPHIL PETROLAT TP SCH (08:52)
[2021-06-01] MEDS: *HR* OxyCODONE/APAP 5/325 TABLET PO PRN (10:35)
[2021-06-01] MEDS: Ipratropium/Albuterol Neb 3 ML IH SCH (11:23)
[2021-06-01] MEDS ORDERED: Ipratropium/Albuterol Neb 3 ML IH PRN (13:21)
[2021-06-01] MEDS: Melatonin 3 MG TABLET PO SCH (20:45)
[2021-06-02] MEDS: *HR* Enoxaparin 40 MG/0.4 ML SYRINGE SQ SCH (05:20)
[2021-06-02] MEDS: Morphine Sulfate ER (12 HR) 15 MG TABLET.ER PO SCH ×2 (05:22→17:37)
[2021-06-02] MEDS: Insulin LISPRO 300 UNITS/3 ML VIAL SUBQ SCH ×4 (08:00→22:07)
[2021-06-02] MEDS: Aspirin Enteric Coated 81 MG Tablet PO SCH (08:02)
[2021-06-02] MEDS: [UNRECOGNIZED DRUG - OTHER] PO SCH (08:02)
[2021-06-02] MEDS: carvediloL 6.25 MG TABLET PO SCH ×3 (08:02→17:38)
[2021-06-02] MEDS: Loratadine 10 MG TABLET PO SCH (08:02)
[2021-06-02] MEDS: Gabapentin 300 MG CAPSULE PO SCH ×3 (08:02→20:36)
[2021-06-02] MEDS: predniSONE 10 MG TABLET PO SCH ×2 (08:02→17:38)
[2021-06-02] MEDS: HYDROPHIL PETROLAT TP SCH (08:03)
[2021-06-02] MEDS: polyethylene glycoL 3350 17 GM POWD.PACK PO SCH (08:03)
[2021-06-02] MEDS: MINERAL OIL TP SCH (08:03)
[2021-06-02] MEDS: *HR* OxyCODONE/APAP 5/325 TABLET PO PRN ×2 (10:59→22:06)
[2021-06-02] MEDS: Melatonin 3 MG TABLET PO SCH (20:36)
[2021-06-02] MEDS: lisinopriL 5 MG TABLET PO SCH (20:49)
[2021-06-03] MEDS: Morphine Sulfate ER (12 HR) 15 MG TABLET.ER PO SCH ×2 (06:00→16:24)
[2021-06-03] MEDS: *HR* Enoxaparin 40 MG/0.4 ML SYRINGE SQ SCH (06:00)
[2021-06-03] MEDS: carvediloL 6.25 MG TABLET PO SCH ×4 (07:44→16:24)
[2021-06-03] MEDS: Insulin LISPRO 300 UNITS/3 ML VIAL SUBQ SCH ×6 (07:44→20:35)
[2021-06-03] MEDS: Gabapentin 300 MG CAPSULE PO SCH ×3 (07:44→20:35)
[2021-06-03] MEDS: HYDROPHIL PETROLAT TP SCH (07:45)
[2021-06-03] MEDS: Loratadine 10 MG TABLET PO SCH (07:45)
[2021-06-03] MEDS: predniSONE 10 MG TABLET PO SCH ×2 (07:45→16:24)
[2021-06-03] MEDS: polyethylene glycoL 3350 17 GM POWD.PACK PO SCH (07:45)
[2021-06-03] MEDS: MINERAL OIL TP SCH (07:45)
[2021-06-03] MEDS: [UNRECOGNIZED DRUG - OTHER] PO SCH (07:45)
[2021-06-03] MEDS: Aspirin Enteric Coated 81 MG Tablet PO SCH (07:45)
[2021-06-03] MEDS: *HR* OxyCODONE/APAP 5/325 TABLET PO PRN (10:48)
[2021-06-03] MEDS: Melatonin 3 MG TABLET PO SCH (20:36)
[2021-06-03] MEDS: lisinopriL 5 MG TABLET PO SCH (20:36)
[2021-06-04] MEDS: *HR* OxyCODONE/APAP 5/325 TABLET PO PRN ×3 (01:27→23:14)
[2021-06-04] MEDS: Morphine Sulfate ER (12 HR) 15 MG TABLET.ER PO SCH ×2 (04:53→18:30)
[2021-06-04] MEDS: *HR* Enoxaparin 40 MG/0.4 ML SYRINGE SQ SCH (04:53)
[2021-06-04] MEDS: Insulin LISPRO 300 UNITS/3 ML VIAL SUBQ SCH ×4 (08:14→21:27)
[2021-06-04] MEDS: Aspirin Enteric Coated 81 MG Tablet PO SCH (08:15)
[2021-06-04] MEDS: HYDROPHIL PETROLAT TP SCH (08:15)
[2021-06-04] MEDS: Loratadine 10 MG TABLET PO SCH (08:15)
[2021-06-04] MEDS: polyethylene glycoL 3350 17 GM POWD.PACK PO SCH (08:15)
[2021-06-04] MEDS: predniSONE 10 MG TABLET PO SCH ×2 (08:15→18:32)
[2021-06-04] MEDS: carvediloL 6.25 MG TABLET PO SCH ×2 (08:15→18:30)
[2021-06-04] MEDS: Gabapentin 300 MG CAPSULE PO SCH ×3 (08:15→21:26)
[2021-06-04] MEDS: [UNRECOGNIZED DRUG - OTHER] PO SCH (08:15)
[2021-06-04] MEDS: MINERAL OIL TP SCH (08:15)
[2021-06-04] MEDS: Melatonin 3 MG TABLET PO SCH (21:26)
[2021-06-04] MEDS: lisinopriL 5 MG TABLET PO SCH (21:26)
[2021-06-05 05:18] LABS: Basophils % 0.3 %; Eosinophils % 0.2 %; Hematocrit 30.5 % (37.5-50.1); Hemoglobin 9.3 g/dL (12.9-16.9); Immature Granulocytes % 3.9 % (0-4); Lymphocytes # 3.3 K/mcL (0.6-4.6); Lymphocytes % 24.4 %; Mean Corpuscular HGB Conc 30.5 g/dL (31.6-35.5); Mean Corpuscular Hemoglobin 30.1 pg (28.0-33.3); Mean Corpuscular Volume 98.7 fL (83.0-100.0); Mean Platelet Volume 10.9 fL (9.4-12.4); Monocytes # 1.5 K/mcL (0.0-1.3); Monocytes % 10.9 %; Neutrophils # 8.2 K/mcL (1.6-8.9); Nucleated Red Blood Cells 0.4 /100 WBC (0); Platelet Count 272 K/mcL (140-400); Red Blood Count 3.09 M/mcL (4.19-5.50); Red Cell Distribution Width 19.7 % (11.5-14.5); Segmented Neutrophils % 60.3 %; White Blood Count 13.6 K/mcL (4.3-11.1)
[2021-06-05 05:34] LABS: BUN/Creatinine Ratio 60 (6-26); Blood Urea Nitrogen 40 mg/dL (8-23); Calcium 8.2 mg/dL (8.6-10.3); Carbon Dioxide 31 mEq/L (23-29); Chloride 102 mEq/L (98-107); Glucose 101 mg/dL (70-105); Osmolality,Calculated 294 (280-300); Potassium 4.4 mEq/L (3.5-5.1); Sodium 137 mEq/L (136-145); eGFR For African Americans > 60 (> 60); eGFR For Non-African Americans > 60 (> 60)
[2021-06-05] MEDS: Morphine Sulfate ER (12 HR) 15 MG TABLET.ER PO SCH ×2 (05:49→18:27)
[2021-06-05] MEDS: *HR* Enoxaparin 40 MG/0.4 ML SYRINGE SQ SCH (05:49)
[2021-06-05 07:37] VITALS: RESP 16
[2021-06-05] MEDS: Insulin LISPRO 300 UNITS/3 ML VIAL SUBQ SCH ×4 (09:53→21:20)
[2021-06-05] MEDS: carvediloL 6.25 MG TABLET PO SCH ×2 (09:58→16:35)
[2021-06-05] MEDS: Aspirin Enteric Coated 81 MG Tablet PO SCH (09:58)
[2021-06-05] MEDS: *HR* OxyCODONE/APAP 5/325 TABLET PO PRN (09:58)
[2021-06-05] MEDS: Loratadine 10 MG TABLET PO SCH (09:59)
[2021-06-05] MEDS: Gabapentin 300 MG CAPSULE PO SCH ×4 (09:59→21:25)
[2021-06-05] MEDS: polyethylene glycoL 3350 17 GM POWD.PACK PO SCH (09:59)
[2021-06-05] MEDS: HYDROPHIL PETROLAT TP SCH (10:00)
[2021-06-05] MEDS: MINERAL OIL TP SCH (10:00)
[2021-06-05] MEDS: [UNRECOGNIZED DRUG - OTHER] PO SCH (10:01)
[2021-06-05] MEDS: lisinopriL 5 MG TABLET PO SCH (21:20)
[2021-06-05] MEDS: Melatonin 3 MG TABLET PO SCH (21:25)
[2021-06-06] MEDS: *HR* Enoxaparin 40 MG/0.4 ML SYRINGE SQ SCH (05:00)
[2021-06-06] MEDS: Morphine Sulfate ER (12 HR) 15 MG TABLET.ER PO SCH (05:00)
[2021-06-06 07:46] VITALS: BP 119/76; PULSE 92; TEMP 98.2; O2SAT 96
[2021-06-06] MEDS: Aspirin Enteric Coated 81 MG Tablet PO SCH (08:32)
[2021-06-06] MEDS: carvediloL 6.25 MG TABLET PO SCH (08:32)
[2021-06-06] MEDS: Insulin LISPRO 300 UNITS/3 ML VIAL SUBQ SCH ×2 (08:32→13:29)
[2021-06-06] MEDS: *HR* OxyCODONE/APAP 5/325 TABLET PO PRN (08:32)
[2021-06-06] MEDS: HYDROPHIL PETROLAT TP SCH (08:33)
[2021-06-06] MEDS: Gabapentin 300 MG CAPSULE PO SCH ×2 (08:33→15:41)
[2021-06-06] MEDS: [UNRECOGNIZED DRUG - OTHER] PO SCH (08:33)
[2021-06-06] MEDS: Loratadine 10 MG TABLET PO SCH (08:33)
[2021-06-06] MEDS: MINERAL OIL TP SCH (08:33)
[2021-06-06] MEDS: polyethylene glycoL 3350 17 GM POWD.PACK PO SCH (08:35)
[2021-06-06 14:36] LABS: Basophils % 0.3 %; Eosinophils # 0.1 K/mcL (0.0-0.6); Eosinophils % 0.5 %; Hematocrit 31.8 % (37.5-50.1); Immature Granulocytes % 2.2 % (0-4); Lymphocytes # 3.2 K/mcL (0.6-4.6); Lymphocytes % 19.8 %; Mean Corpuscular HGB Conc 31.4 g/dL (31.6-35.5); Mean Corpuscular Hemoglobin 30.5 pg (28.0-33.3); Mean Platelet Volume 10.7 fL (9.4-12.4); Monocytes # 1.9 K/mcL (0.0-1.3); Monocytes % 12.1 %; Neutrophils # 10.4 K/mcL (1.6-8.9); Platelet Count 271 K/mcL (140-400); Red Blood Count 3.28 M/mcL (4.19-5.50); Red Cell Distribution Width 19.2 % (11.5-14.5); Segmented Neutrophils % 65.1 %
[2021-06-06 14:52] LABS: Basophils # 0.1 K/mcL (0.0-0.2)
== END 2021-06-06 15:55 | disposition home health service (06) | DRG 945 ==
LOC: INPGRE 05-11 18:28
PROVIDERS: ADMIT Family Medicine; ATTEND Family Medicine